=== PATIENT | male | born 1955 | race Caucasian/White ===

== ENCOUNTER 2019-08-15 06:21 | Day surgery (SDC) | payer BC ==
[2019-08-15] MEDS ORDERED: Propofol 200 MG/20 ML SDV IV ONE (06:22)
[2019-08-15] MEDS ORDERED: Lactated Ringers 1,000 ML IV SCH (06:30)
--- NOTE | 2019-08-15 08:00 | PREOP ---
ADMISSION DATE: 08/15/2019 CHIEF COMPLAINT: Colon cancer screening. HISTORY OF PRESENT ILLNESS: This is a 64-year-old white male, referred for screening colonoscopy. He has no issues. Does have a family history of colon cancer with his father. He has never had a colonoscopy. SOCIAL HISTORY: The patient is a former smoker, had a 30 pack-year smoking history. Does not use alcohol. FAMILY HISTORY: Father is from heart disease. Mother is also . PAST MEDICAL HISTORY: Significant for depression, early onset of dementia, history of alcohol abuse, history of subarachnoid hemorrhage, hyperlipidemia, and senile cataract. PAST SURGICAL HISTORY: Significant for hip surgery. MEDICATIONS: 1. Celexa 20 mg daily. 2. Aricept 10 mg at bedtime. 3. Namenda 10 mg 2 times a day. 4. Zyprexa 5 mg 1 time per day. 5. Zocor 20 mg at bedtime. 6. 325 mg aspirin tablet per day. ALLERGIES: He has no known drug allergies. REVIEW OF SYSTEMS: CONSTITUTIONAL: Negative. RESPIRATORY: Negative. CARDIOVASCULAR: Negative. GASTROINTESTINAL: Negative. PHYSICAL EXAMINATION: GENERAL: This is a well-developed, well-nourished white male, appearing in no acute distress. HEENT: Grossly within normal limits. VITAL SIGNS: Stable and afebrile. LUNGS: Clear to auscultation. HEART: Had a regular rate and rhythm. ABDOMEN: Soft, nontender. ASSESSMENT: Colon cancer screening. PLAN: C-scope. Procedure and risks explained to the patient to include bleeding, perforation, and infection. The patient expresses understanding and he asked us to proceed. /[id number] /MODL
--- NOTE | 2019-08-15 08:04 | PCM.OPNOTE ---
- General Post-Op/Procedure Note Date of Surgery/Procedure: 08/15/19 Operative Procedure(s): c scope with cold forceps biopsy Findings: transverse and descending colon polyp Pre Op Diagnosis: colon cancer screening Post-Op Diagnosis: transverse and descending colon polyp Anesthesia Technique: MAC Primary Surgeon: Marcello Barger Anesthesia Provider: Flori Mccloud Pathology: transverse and descending colon polyp Complications: None Condition: Good Free Text/Narrative:: see dictation
--- NOTE | 2019-08-15 09:36 | OR ---
DATE OF OPERATION: 08/15/2019 SURGEON: Marcello Barger MD PROCEDURE PERFORMED: Colonoscopy with cold forceps biopsy. PREOPERATIVE DIAGNOSIS: Need for colon cancer screening. POSTOPERATIVE DIAGNOSIS: Polyp of the transverse and descending colon. INDICATIONS FOR PROCEDURE: This 64-year-old white male, presents for a screening colonoscopy. He has a family history of colon cancer with his father in the past. Offered and accepted scope. DESCRIPTION OF OPERATION: After an excellent IV sedation was administered, digital rectal exam was performed. No marked abnormality was noted. Flexible colonoscope was inserted and advanced to the cecum without difficulty. Prep was excellent. Following findings were noted. Ascending colon, unremarkable. Transverse colon, small polypoid lesion in the proximal transverse colon, biopsied, sent for permanent. Descending colon, in the mid descending colon, small polypoid lesion, biopsied and sent for permanent with cold forceps biopsies. Sigmoid, unremarkable. Anus, unremarkable. Results will be sent to the patient via letter and followup colonoscopy will be determined on the basis of the pathologic report. /[id number] /RAJENDRAL
== END 2019-08-15 08:50 | disposition home or self-care (01) ==
LOC: FB.SDS 06:21
PROVIDERS: ATTEND Surgery
DX: Z12.11 Encounter for screening for malignant neoplasm of colon (principal); D12.3 Benign neoplasm of transverse colon; K63.5 Polyp of colon; F32.9 Major depressive disorder, single episode, unspecified; F03.90 Unspecified dementia, unspecified severity, without behavioral disturbance, psychotic disturbance, mood disturbance, and anxiety; E78.5 Hyperlipidemia, unspecified; Z80.0 Family history of malignant neoplasm of digestive organs; Z87.891 Personal history of nicotine dependence; Z79.82 Long term (current) use of aspirin; Z79.899 Other long term (current) drug therapy
CPT/HCPCS: 45380; 88305; J2704; J7120

== ENCOUNTER 2025-05-03 06:12 | Day surgery (SDC) | payer MEDICARE, OTHER ==
[2025-05-03] MEDS ORDERED: Propofol 200 MG/20 ML SDV IV ONE (06:13)
[2025-05-03] MEDS ORDERED: Sodium Chloride 0.9% 10 ML Syringe FLUSH PRN (06:15)
[2025-05-03] MEDS: Lactated Ringers 1,000 ML IV SCH (07:23)
== END 2025-05-03 10:08 | disposition home or self-care (01) ==
LOC: FB.SDS 06:12
PROVIDERS: ATTEND Surgery
DX: Z12.11 Encounter for screening for malignant neoplasm of colon (principal); K64.9 Unspecified hemorrhoids; E78.5 Hyperlipidemia, unspecified; E66.01 Morbid (severe) obesity due to excess calories; Z80.0 Family history of malignant neoplasm of digestive organs; Z79.82 Long term (current) use of aspirin; Z79.899 Other long term (current) drug therapy; Z86.0101 Personal history of adenomatous and serrated colon polyps; Z87.891 Personal history of nicotine dependence; Z68.41 Body mass index [BMI] 40.0-44.9, adult
CPT/HCPCS: 45378; A9270; J2704; J7120; 00811